=== PATIENT | female | born 1955 | race Caucasian/White ===

== ENCOUNTER 2023-12-27 05:53 | Emergency (ER) | payer MEDICARE, OTHER, SELFPAY ==
[2023-12-27 05:53] VITALS: BMI 31.6
[2023-12-27 05:58] VITALS: BP 162/106
[2023-12-27 06:20] VITALS: BP 158/82
[2023-12-27 06:39] LABS: % Basophils 0.4 % (0-2); % Eosinophils 1.6 % (0-6); % Immature Granulocytes 0.5 % (0-0.5); % Lymphocytes 30.2 % (20.5-51.1); % Monocytes 6.3 % (1.7-9.3); Absolute Eosinophils 0.1 10^3/uL (0-0.7); Absolute Lymphocytes 2.3 10^3/uL (1.2-3.4); Absolute Monocytes 0.5 10^3/uL (0.1-0.6); Absolute Neutrophils 4.6 10^3/uL (1.4-6.5); Hematocrit 41.7 % (37.0-47.0); Hemoglobin 14.1 g/dL (12.0-16.0); Mean Corp Hgb Conc. 33.8 g/dL (33.0-37.0); Mean Corpuscular Hgb 28.5 pg (27.0-31.0); Mean Corpuscular Volume 84.2 fL (81.0-99.0); Mean Platelet Volume 9.8 fL (7.4-10.4); Nucleated Red Blood Cells % 0 %; Platelet Count 292 10^3/uL (130-400); Red Blood Cell Count 4.95 10^6/uL (4.20-5.40); Red Cell Dist. Width 12.4 % (11.5-14.5); White Blood Cell Count 7.6 10^3/uL (4.8-10.8)
[2023-12-27 06:43] LABS: Urine Albumin Negative (Neg - Trace); Urine Bilirubin Negative (Negative); Urine Character Clear (Clear); Urine Color Yellow; Urine Glucose Negative (Negative); Urine Ketone Negative (Negative); Urine Leukocyte Negative (Negative); Urine Nitrite Negative (Negative); Urine Occult Blood Negative (Negative); Urine Specific Gravity 1.005 (<1.030); Urine Urobilinogen Negative (Neg - 1+)
[2023-12-27 06:53] VITALS: BP 161/84
[2023-12-27] MEDS: OMNIPAQUE 50 ML PO (06:54)
[2023-12-27] MEDS: NSS 1000 IV (06:55)
--- NOTE | 2023-12-27 06:56 | ED.GENMED ---
History of Present Illness
General
Chief Complaint: Abdominal Pain
Source: patient
Exam Limitations: none
Time Seen by Provider: 12/27/23 06:35
Nursing documentation reviewed up to this point in time: agreed with
Travel History
Have you had any contact with someone who has COVID-19?: No
Do you have any symptoms of coronavirus? Fever > 100 degrees, chills, cough, shortness of breath, sore throat, loss of taste or smell, muscle aches, or headache?: No
History of Present Illness
History of Present Illness:
68-year-old female presents with right flank and right lower abdominal pain nausea with diarrhea no fever appetites been okay she has had hysterectomy with oophorectomy, gallbladder surgery orthopedic surgery no recent travel, no antibiotic use
Phy Exam
Physical Exam
Physical Exam:
Physical Exam
General: no apparent distress, not acutely ill
Neck: No jaundice
Heart: s1/s2 regular rate and rhythm, no murmur. equal radial pulses.
Lungs: no acute respiratory distress. clear bilaterally
Abdomen: Soft mild right lower abdominal tenderness no appreciable hernia
Neuro: alert and oriented. no focal neurological deficits
Skin: no rash
Psychiatric: well kept. interactive and cooperative
Extremities: no edema.
Course
Orders/Labs/Results
Orders:
Orders
12/27/23 06:31
Complete Blood Count/With Diff Urgent
Comprehensive Metabolic Panel Urgent
Urinalysis Reflex To Culture Urgent
Date Specimen was Collected: 12/27/23
Time Specimen was Collected: 06:29
12/27/23 06:44
CT Abd/pel W Iv And Oral Contr Urgent
Comment:
Reason For Exam: rlq pain
Iohexol [Omnipaque] See Protocol PO NOW STA
12/27/23 06:45
Electrocardiogram (*1) Urgent
Reason for Study: Abdominal Pain
EKG- Treatment ONCE
0.9% Sodium Chloride 1000 ml [Nss] 1,000 ml IV BOLUS
Morphine Sulfate 4 mg IV NOW STA
12/27/23 07:23
EKG [Electrocardiogram (*1)] Urgent
Reason for Study: Fatigue / Weakness
EKG- Treatment ONCE
Abnormal Lab Results
12/27/23
06:31
BUN 25 H mg/dl
(7-17)
Glucose 112 H mg/dl
(70-99)
ALT 46 H U/L
(0-35)
Alkaline Phosphatase 128 H U/L
(38-126)
12/27/23 06:31
12/27/23 06:31
Vital Signs
Initial and Last Documented VS:
Initial Vital Signs
Temp Pulse Resp BP Pulse Ox
98.3 F 98 16 162/106 98
12/27/23 05:58 12/27/23 05:58 12/27/23 05:58 12/27/23 05:58 12/27/23 05:58
Last Documented Vital Signs
Temp Pulse Resp BP Pulse Ox
97.6 F 71 15 136/81 98
12/27/23 10:04 12/27/23 10:04 12/27/23 10:04 12/27/23 10:04 12/27/23 10:04
MDM/Problems Addressed
Differential Diagnosis Includes:
Colitis appendicitis conceivably muscular no obvious hernia infectious diarrhea
MDM/Problems Addressed:
Abdominal pain diarrhea nausea
Chronic conditions affecting care: Previous abdomnial surgery
Acute Exacerbation and/or Progression of Chronic Illness: Previous abdomnial surgery
*Radiology
Radiology exam reviewed: preliminary read by ED provider
*Pulse Oximetry
Patient hypoxic: no
*EKG
Interpreted by ED Provider?: Yes
Interpretation: normal
Comparison EKG: no comparison EKG present
Heart Rate: 78
Rate: normal
Rhythm: sinus
Ischemia: no ischemia
*[place] [place] [employer] Interpretation
Rate: [place] [place] [address]- N/A
*Critical Care Note
Total Time (30-74mins, 75-104mins- exclusive of procedures): Not Applicable
Update Note
Update Note:
10:45 AM labs noted urine noted CAT scan noted patient states she is feeling a bit better is having urinary frequency but no burning urinalysis is noted no white cells
ED Attending Note
-
Portions of this chart may have been created with voice recognition software.� Occasional wrong word or��sound alike� substitutions may have occurred due to the inherent limitations of voice recognition software.
Discharge Plan
Departure
Patient Disposition: Home (Routine Discharge)
Date of Disposition: 12/27/23
Time of Disposition: 10:57
Patient with high blood pressure during this ER visit?: No
Condition: Good
Discharge Problem:
Abdominal pain
Instructions: Abdominal Pain
Prescriptions:
New
dicyclomine 20 mg tablet
20 mg PO QID PRN (Reason: abdominal pain) Qty: 10 0RF
No Action
amlodipine 2.5 mg Tablet
2.5 mg PO DAILY
fexofenadine [Iman] 180 mg Tablet
180 mg PO DAILY
levothyroxine [Synthroid] 75 mcg Tablet
75 mcg PO DAILY
diphenhydramine HCl [Benadryl] 25 mg Capsule
15 mg PO HS PRN (Reason: allergies)
fluticasone furoate 27.5 mcg/actuation [place],Suspension
1 spray INTRANASAL DAILY
Referrals:
Brett De León DO [Family Provider] - Next open appointment
Interventions
Interventions:
*Risk Screen - Suicide Last Done: 12/27/23 05:58
*General Assessment Last Done: 12/27/23 05:58
*Neglect/Abuse Screening Last Done: 12/27/23 05:58
ED- Fall Risk Assessment Last Done: 12/27/23 05:58
*ED COVID-19 Vaccine History Last Done: 12/27/23 05:58
EY-Moevlg-Mhdqslvwrg Assessment Last Done: 12/27/23 07:14
Discharge Date and Time
Print Language: J[place]
[2023-12-27 07:05] LABS: ALT (SGPT) 46 U/L (0-35); AST (SGOT) 35 U/L (14-36); Albumin 4.7 g/dl (3.5-5.0); Alkaline Phosphatase 128 U/L (38-126); Blood Urea Nitrogen 25 mg/dl (7-17); Calcium 9.4 mg/dl (8.4-10.2); Carbon Dioxide 29 mmol/L (22-30); Chloride 104 mmol/L (98-107); Estimated Creatinine Clearance 70 ml/min; Glucose 112 mg/dl (70-99); Potassium 3.9 mmol/L (3.5-5.1); Sodium 143 mmol/L (135-145); Total Bilirubin 0.5 mg/dl (0.2-1.3); Total Protein 7.9 g/dl (6.3-8.2); eGFR > 60.00
[2023-12-27 10:04] VITALS: BP 136/81
== END 2023-12-27 11:16 | disposition home or self-care (01) ==
LOC: EMR 05:53
PROVIDERS: EMERGENCY PHYSICIAN Emergency Medicine; FAMILY PHYSICIAN Family Medicine
DX: R10.31 Right lower quadrant pain (principal)
CPT/HCPCS: 99284; 96374; 96361; 74177; 80053; 81003; 85025; 93005; Q9967

== ENCOUNTER 2024-01-17 09:10 | Emergency (ER) | payer MEDICARE, OTHER, SELFPAY ==
[2024-01-17 09:15] VITALS: BP 151/82
[2024-01-17 09:25] VITALS: BMI 30.1
--- NOTE | 2024-01-17 09:49 | ED.SKININJ ---
HPI-Injury
General
Chief Complaint: Bite
Source: patient
Exam Limitations: none
Nursing documentation reviewed up to this point in time: agreed with
History of Present Illness-Injury
Initial Injury comments:
68 yo female with Hx HTN, hypothyroid, presents with cat bite left forearm. She is cat sitting and as she was petting the cat, it bit her left forearm. She washed the area with soap and water. [employer] cat says she missed the cat's last
immunizations 6 weeks ago but has been immunized up to then. Pt unsure of last tetanus immunization.
Past History
Past History
ED Past Medical History: HTN
ED Past Surgical History: Cholecystectomy, Gynecological, Orthopedic and Tonsilectomy
Social History
Tobacco: Non-smoker
Personal:
Living: with family
Employment: Retired
Review of Systems
Review of Systems
Allergies reviewed?: Yes
All Other Systems: ROS reviewed and negative except as documented in HPI and ROS
Skin: Reports other (Cat bite left forearm)
Skin Exam
Bite
Left forearm:
Type: animal
Skin has: other (a cm abrasion)
Surrounding area around bite has: no evidence of erythema
Distal skin color and temperature: normal-warm & good color
Normal distal neurovascular exam: Yes
Phy Exam
Physical Exam
Physical Exam:
PHYSICAL EXAMINATION:
General: no apparent distress, not acutely ill
Neuro: alert and oriented.
Cardiac: RRR, + murmur
Lungs: CTA
Psychiatric: well kept. interactive and cooperative
Musculoskeletal: Moves with ease
Skin: Warm, pink.
Course
Orders/Labs/Results
Orders:
Orders
01/17/24 09:45
Tetanus/Diphth/Acelpertussis [Adacel] 0.5 ml IM .ONCE ONE
Vital Signs
Initial and Last Documented VS:
Initial Vital Signs
Temp Pulse Resp BP Pulse Ox
97.9 F 86 16 151/82 99
01/17/24 09:15 01/17/24 09:15 01/17/24 09:15 01/17/24 09:15 01/17/24 09:15
Last Documented Vital Signs
Temp Pulse Resp BP Pulse Ox
97.9 F 86 16 151/82 99
01/17/24 09:15 01/17/24 09:15 01/17/24 09:15 01/17/24 09:15 01/17/24 09:15
MDM/Problems Addressed
MDM/Problems Addressed:
68 yo female with Hx HTN, hypothyroid, presents with cat bite left forearm. She is cat sitting and as she was petting the cat, it bit her left forearm. She washed the area with soap and water. [employer] cat says she missed the cat's last
immunizations 6 weeks ago but has been immunized up to then. Pt unsure of last tetanus immunization.
Lengthy discussion with pt. this is an extremely low risk for rabies. The cat is indoors, acting normally and can be observed over the next 10 days. Patient was given information on rabies from the CDC as well as return instructions.
Patient opts to wait and observe the cat. This is reasonable
Tetanus immunization updated
Wound cleansed with antibacterial soap and water.
*Critical Care Note
Total Time (30-74mins, 75-104mins- exclusive of procedures): Not Applicable
ED Attending Note
-
Portions of this chart may have been created with voice recognition software.� Occasional wrong word or��sound alike� substitutions may have occurred due to the inherent limitations of voice recognition software.
Discharge Plan
Departure
Patient Disposition: Home (Routine Discharge)
Date of Disposition: 01/17/24
Time of Disposition: 09:45
Patient with high blood pressure during this ER visit?: No
Condition: Good
Discharge Problem:
Cat bite of left forearm
Instructions: Animal Bites (DC), Rabies (DC), Rabies Vaccine CDC Vaccine Information Statement (VIS)
Prescriptions:
No Action
amlodipine 2.5 mg Tablet
2.5 mg PO DAILY
fexofenadine [Iman] 180 mg Tablet
180 mg PO DAILY
levothyroxine [Synthroid] 75 mcg Tablet
75 mcg PO DAILY
diphenhydramine HCl [Benadryl] 25 mg Capsule
15 mg PO HS PRN (Reason: allergies)
fluticasone furoate 27.5 mcg/actuation [place],Suspension
1 spray INTRANASAL DAILY
dicyclomine 20 mg tablet
20 mg PO QID PRN (Reason: abdominal pain) Qty: 10 0RF
Referrals:
Brett De León, DO [Family Provider] -
Activity Restrictions/Additional Instructions:
As we discussed, since this is an inside cat, has not been outside any time recently, shows no sign of illness (frothing at the mouth, acting crazy, not eating), EXTREMELY LOW low risk of Rabies.
Observe the cat over next 10 days, if he remains healthy, no chance of rabies. If he starts acting ill, return here immediately for Rabies immunization.
Interventions
Interventions:
*General Assessment Last Done: 01/17/24 09:15
*ED COVID-19 Vaccine History Last Done: 01/17/24 09:15
*Nursing Disposition Last Done: 01/17/24 10:00
ED-Skin Assessment Last Done: 01/17/24 09:25
Discharge Date and Time
Discharge Date/Time: 01/17/24 10:00
Print Language: MALDIVIAN
[2024-01-17] MEDS: ADACEL 0.5 ML IM (09:52)
== END 2024-01-17 10:00 | disposition home or self-care (01) ==
LOC: EMR 09:10
PROVIDERS: EMERGENCY PHYSICIAN Emergency Medicine; FAMILY PHYSICIAN Family Medicine
DX: S50.812A Abrasion of left forearm, initial encounter (principal); W55.01XA Bitten by cat, initial encounter; Z23 Encounter for immunization; I10 Essential (primary) hypertension; E03.9 Hypothyroidism, unspecified
CPT/HCPCS: 99282; 90471; 90715

== ENCOUNTER → 2024-02-24 14:52 | Outpatient (REF) | payer MEDICARE, OTHER, SELFPAY | LOC: MRI 3T 14:52 | PROVIDERS: ATTENDING PHYSICIAN Orthopaedic Surgery; FAMILY PHYSICIAN Family Medicine | DX: M25.551 Pain in right hip (principal) | CPT/HCPCS: 73721 ==

== ENCOUNTER → 2024-04-26 07:59 | Outpatient (REF) | payer MEDICARE, OTHER, SELFPAY | LOC: MRI 3T 07:59 | PROVIDERS: ATTENDING PHYSICIAN Physician Assistant; FAMILY PHYSICIAN Family Medicine | DX: M54.16 Radiculopathy, lumbar region (principal) | CPT/HCPCS: 72148 ==

== ENCOUNTER 2024-06-18 23:34 | Emergency (ER) | payer MEDICARE, OTHER, SELFPAY ==
[2024-06-18 23:37] VITALS: BP 177/95; BMI 31.9
--- NOTE | 2024-06-19 00:06 | ED.GENMED ---
History of Present Illness
General
Chief Complaint: Cough
Time Seen by Provider: 06/18/24 23:52
History of Present Illness
History of Present Illness:
Patient presents to the emergency department with cough x 4 weeks. She was seen initially by her primary doctor 4 weeks ago with sore throat cough and pain in her ears. She was given an inhaler without relief. States cough has been persistent. no
fevers/chills. No sob. no cp. Some pain in thoracic back while coughing. No leg swelling
Past History
Past History
ED Past Medical History: HTN
ED Past Surgical History: Cholecystectomy, Gynecological, Orthopedic and Tonsilectomy
Social History
Tobacco: Non-smoker
Personal:
Living: with family
Employment: Retired
Phy Exam
Physical Exam
Physical Exam:
GENERAL APPEARANCE: NAD, well developed/ well nourished
EYES lids/conjunctiva normal
EARS/NOSE/THROAT Mucous membranes moist, uvula midline without oral pharyngeal erythema, exudate or swelling
HEAD/NECK normocephalic atraumatic, neck is supple.
RESPIRATORY respiratory effort normal, speaks in full sentences, no accessory muscle use. Lungs clear to auscultation without rhonchi, wheezes, rales
CARDIAC Regular rate and rhythm, no edema.
ABDOMINAL Soft, ND/NT.
MUSCLES/EXTREMITIES No abnormal range of motion, no swelling.
SKIN Warm, pink and dry. No rashes
NEUROLOGICAL Speech is clear and appropriate. Normal level of consciousness. 5/5 strength in all extremities.
Course
Orders/Labs/Results
Orders:
Orders
06/19/24 00:00
CR Chest - 2 Views Urgent
Reason For Exam: cough x 1 month
06/19/24 01:09
Prednisone [Deltasone] 40 mg PO NOW STA
06/19/24 02:00
Doxycycline [Vibramycin] 100 mg PO ONCE ONE
Vital Signs
Initial and Last Documented VS:
Initial Vital Signs
Temp Pulse Resp BP Pulse Ox
97.9 F 100 17 177/95 100
06/18/24 23:37 06/18/24 23:37 06/18/24 23:37 06/18/24 23:37 06/18/24 23:37
Last Documented Vital Signs
Temp Pulse Resp BP Pulse Ox
97.9 F 81 18 155/77 96
06/18/24 23:37 06/19/24 02:05 06/19/24 02:05 06/19/24 02:05 06/19/24 02:05
*Critical Care Note
Total Time (30-74mins, 75-104mins- exclusive of procedures): Not Applicable
ED Attending Note
ED Attending Note
ED Attending Note:
Patient with cough for 4 weeks with change in mucus. She is well-appearing, afebrile. Lungs clear to auscultation bilaterally. She is saturating well on room air. Suspect bronchitis versus pneumonia. Clinically not requiring hospital admission
at this time. Presented obtain chest x-ray and treat accordingly.
-
Portions of this chart may have been created with voice recognition software.� Occasional wrong word or��sound alike� substitutions may have occurred due to the inherent limitations of voice recognition software.
Discharge Plan
Departure
Patient Disposition: Home (Routine Discharge)
Date of Disposition: 06/19/24
Time of Disposition: 01:12
Patient with high blood pressure during this ER visit?: Yes
Discharge Problem:
Acute bronchitis
Instructions: Acute Bronchitis, Adult (DC)
Prescriptions:
New
doxycycline monohydrate 100 mg capsule
100 mg PO BID Qty: 14 0RF
prednisone 20 mg tablet
40 mg PO DAILY Qty: 4 0RF
No Action
amlodipine 2.5 mg Tablet
2.5 mg PO DAILY
fexofenadine [Iman] 180 mg Tablet
180 mg PO DAILY
levothyroxine [Synthroid] 75 mcg Tablet
75 mcg PO DAILY
diphenhydramine HCl [Benadryl] 25 mg Capsule
15 mg PO HS PRN (Reason: allergies)
fluticasone furoate 27.5 mcg/actuation [place],Suspension
1 spray INTRANASAL DAILY
dicyclomine 20 mg tablet
20 mg PO QID PRN (Reason: abdominal pain) Qty: 10 0RF
Referrals:
Brett De León DO [Family Provider] -
Activity Restrictions/Additional Instructions:
follow up with your doctor for recheck in the next week
return to ER if worse
Interventions
Interventions:
*Risk Screen - Suicide Last Done: 06/18/24 23:37
*General Assessment Last Done: 06/18/24 23:37
*Neglect/Abuse Screening Last Done: 06/18/24 23:37
ED- Fall Risk Assessment Last Done: 06/19/24 00:46
*ED COVID-19 Vaccine History Last Done: 06/18/24 23:37
*Nursing Disposition Last Done: 06/19/24 02:05
ED- Pulmonary Assessment Last Done: 06/19/24 00:46
Discharge Date and Time
Discharge Date/Time: 06/19/24 02:06
Print Language: ITALIAN
[2024-06-19] MEDS: VIBRAMYCIN 100 MG PO (01:41)
[2024-06-19] MEDS: DELTASONE 40 MG PO (01:41)
[2024-06-19 02:05] VITALS: BP 155/77
== END 2024-06-19 02:06 | disposition home or self-care (01) ==
LOC: EMR 23:34
PROVIDERS: EMERGENCY PHYSICIAN Emergency Medicine; FAMILY PHYSICIAN Family Medicine
DX: J20.9 Acute bronchitis, unspecified (principal); I10 Essential (primary) hypertension; Z90.49 Acquired absence of other specified parts of digestive tract
CPT/HCPCS: 99283; 71046

== ENCOUNTER → 2024-07-16 09:55 | Outpatient (REF) | payer MEDICARE, OTHER, SELFPAY | LOC: HWRAD 09:55 | PROVIDERS: ATTENDING PHYSICIAN Family Medicine | DX: R05.3 Chronic cough (principal); R05.1 Acute cough; R19.8 Other specified symptoms and signs involving the digestive system and abdomen | CPT/HCPCS: 71250 ==

== ENCOUNTER → 2024-08-28 09:02 | Outpatient (REF) | payer MEDICARE, OTHER, SELFPAY | LOC: RCS 09:02 | PROVIDERS: ATTENDING PHYSICIAN Family Medicine | DX: R01.1 Cardiac murmur, unspecified (principal) | CPT/HCPCS: 93306 ==

== ENCOUNTER → 2024-10-04 08:14 | Outpatient (REF) | payer MEDICARE, OTHER, SELFPAY | LOC: PAVMRI 08:14 | PROVIDERS: ATTENDING PHYSICIAN Physician Assistant Medical; FAMILY PHYSICIAN Family Medicine | DX: M25.512 Pain in left shoulder (principal) | CPT/HCPCS: 73221 ==

== ENCOUNTER → 2024-12-22 14:05 | Outpatient (REF) | payer MEDICARE, OTHER, SELFPAY | LOC: HWRAD 14:05 | PROVIDERS: ATTENDING PHYSICIAN Family Medicine | DX: R91.1 Solitary pulmonary nodule (principal) | CPT/HCPCS: 71250 ==

== ENCOUNTER 2025-02-21 00:43 | Emergency (ER) | payer MEDICARE, OTHER, SELFPAY ==
[2025-02-21 01:20] VITALS: BP 162/85
[2025-02-21 01:59] VITALS: BMI 31.3
[2025-02-21 02:00] VITALS: BP 153/82
[2025-02-21] MEDS: NSS 500 IV (02:09)
[2025-02-21] MEDS: BENADRYL 25 MG IV (02:10)
[2025-02-21] MEDS: PEPCID 20 MG IV (02:11)
[2025-02-21] MEDS: DECADRON 10 MG IV (02:13)
[2025-02-21 02:56] VITALS: BP 144/71
--- NOTE | 2025-02-21 03:32 | ED.GENMED ---
History of Present Illness
General
Chief Complaint: Allergic Reaction
Source: patient
Exam Limitations: none
Time Seen by Provider: 02/21/25 01:49
Nursing documentation reviewed up to this point in time: agreed with
History of Present Illness
History of Present Illness:
Patient presents to ED secondary to sudden onset of itchy rash, approximately 10 minutes after eating a turkey sandwich at home. Itching rash started in her abdomen, but has spread to her arms, legs, face and scalp. Denies difficulty swallowing or
shortness of breath. Denies nausea or vomiting. Denies chest pain. Denies dizziness. Patient states that she had similar episode approximately 40 years ago secondary to pecan. Denies recent illness. Denies recent change in medications or diet.
Past History
Past History
ED Past Medical History: HTN
ED Past Surgical History: Cholecystectomy, Gynecological, Orthopedic and Tonsilectomy
Social History
Tobacco: Non-smoker
Personal:
Living: with family
Employment: Retired
Review of Systems
Review of Systems
Allergies reviewed?: Yes
All Other Systems: ROS reviewed and negative except as documented in HPI and ROS
Constitutional: Reports no symptoms
Respiratory: Reports no symptoms; Denies trouble breathing
Cardiac: Reports no symptoms; Denies chest pain
ABD/GI: Reports no symptoms; Denies abdominal pain, nausea or vomiting
Musculoskeletal: Reports no symptoms
Skin: Reports itching and rash
Neurological: Reports no symptoms
Phy Exam
Physical Exam
Physical Exam:
Physical Exam
General: mild distress, not acutely ill. afebrile
Head: nc/at. eomi
Neck: supple. no meningeal signs. normal posterior pharynx
Heart: s1/s2 regular rate and rhythm
Lungs: no acute respiratory distress. clear bilaterally
Abdomen: normal bowel sounds. not tender.
Neuro: alert and oriented x 3. no focal neurological deficits
Skin: hives noted over abdomen/UE/LE/neck
Psychiatric: well kept. interactive and cooperative
Extremities: no edema. no calf tenderness.
Course
Orders/Labs/Results
Orders:
Orders
02/21/25 02:02
0.9% Sodium Chloride 500 ml [Nss] 500 ml IV BOLUS
Dexamethasone Sod Phosphate [Decadron] 10 mg IV NOW STA
Diphenhydramine [Benadryl] 25 mg IV NOW STA
Famotidine [Pepcid] 20 mg IV NOW STA
Vital Signs
Initial and Last Documented VS:
Initial Vital Signs
Temp Pulse Resp BP Pulse Ox
98.6 F 89 20 162/85 99
02/21/25 01:20 02/21/25 01:20 02/21/25 01:20 02/21/25 01:20 02/21/25 01:20
Last Documented Vital Signs
Temp Pulse Resp BP Pulse Ox
98.6 F 85 16 159/88 99
02/21/25 01:20 02/21/25 04:00 02/21/25 04:00 02/21/25 03:44 02/21/25 04:00
MDM/Problems Addressed
MDM/Problems Addressed:
History and exam consistent with allergic reaction, of unknown etiology, although potential reaction to turkey sandwich, is quite possible. After treatment, patient does report mild improvement in symptoms. Patient otherwise remains afebrile,
hemodynamically stable, and without any acute respiratory distress. Patient will be discharged home at this time, with prescription for tapered course of prednisone, along with use of Benadryl and Iman for symptomatic relief. Patient will
follow-up with her internal medicine specialist for reevaluation. Advised to return to ED with worsening symptoms.
*Pulse Oximetry
SaO2: 99
Oxygen Mode of Delivery: Room air
Patient hypoxic: no
*Critical Care Note
Total Time (30-74mins, 75-104mins- exclusive of procedures): Not Applicable
ED Attending Note
-
Portions of this chart may have been created with voice recognition software.� Occasional wrong word or��sound alike� substitutions may have occurred due to the inherent limitations of voice recognition software.
Discharge Plan
Departure
Patient Disposition: Home (Routine Discharge)
Date of Disposition: 02/21/25
Time of Disposition: 03:36
Patient with high blood pressure during this ER visit?: Yes
Condition: Good
Discharge Problem:
Allergic reaction
Instructions: Allergic reaction - ED discharge instructions
Prescriptions:
New
prednisone 10 mg tablet
10 mg PO DIRECTED Qty: 20 0RF
Rx Instructions:
Day 1-2: 40mg po daily
Day 2-4: 30mg po daily
Day 5-6: 20mg po daily
Day 7-8: 10mg po daily
No Action
amlodipine 2.5 mg Tablet
2.5 mg PO DAILY
fexofenadine [Iman] 180 mg Tablet
180 mg PO DAILY
levothyroxine [Synthroid] 75 mcg Tablet
75 mcg PO DAILY
diphenhydramine HCl [Benadryl] 25 mg Capsule
15 mg PO HS PRN (Reason: allergies)
fluticasone furoate 27.5 mcg/actuation [place],Suspension
1 spray INTRANASAL DAILY
dicyclomine 20 mg tablet
20 mg PO QID PRN (Reason: abdominal pain) Qty: 10 0RF
doxycycline monohydrate 100 mg capsule
100 mg PO BID Qty: 14 0RF
prednisone 20 mg tablet
40 mg PO DAILY Qty: 4 0RF
Referrals:
Brett De León DO [Family Provider, Family Practice]
Interventions
Interventions:
*Risk Screen - Suicide Last Done: 02/21/25 01:20
*General Assessment Last Done: 02/21/25 01:20
*Neglect/Abuse Screening Last Done: 02/21/25 01:20
*ED- Fall Risk Assessment Last Done: 02/21/25 01:20
*ED COVID-19 Vaccine History Last Done: 02/21/25 01:20
*Nursing Disposition Last Done: 02/21/25 04:00
ED- Cardiac Assessment Last Done: 02/21/25 01:59
ED- Pulmonary Assessment Last Done: 02/21/25 03:41
ED-Skin Assessment Last Done: 02/21/25 03:41
Discharge Date and Time
Discharge Date/Time: 02/21/25 04:00
Print Language: QATARI
[2025-02-21 03:44] VITALS: BP 159/88
== END 2025-02-21 04:00 | disposition home or self-care (01) ==
LOC: EMR 00:43
PROVIDERS: EMERGENCY PHYSICIAN Emergency Medicine; FAMILY PHYSICIAN Family Medicine
DX: L50.0 Allergic urticaria (principal); T78.40XA Allergy, unspecified, initial encounter; I10 Essential (primary) hypertension; Z90.49 Acquired absence of other specified parts of digestive tract; Z91.030 Bee allergy status
CPT/HCPCS: 99284; 96374; 96375 ×2; 96361